=== PATIENT | female | born 1930 | race Caucasian/White ===

== ENCOUNTER 2016-06-09 10:08 | Inpatient (IN) ==
--- NOTE | 2016-06-09 10:16 | Emergency Department Note ---
Disposition Clinical Impression: Elevated troponin I level Chest pain Qualifiers: Chest pain type: unspecified Qualified Code(s): R07.9 - Chest pain, unspecified Disposition: Admitted As Inpatient Condition: Fair Time of Disposition: 12:15 General Adult HPI - General Chief complaint: ED General Medical Stated complaint: back and arm pain Time Seen by Provider: 06/09/16 10:08 Source: EMS Mode of arrival: EMS Limitations: age Nursing Notes Reviewed: Yes Vital Signs Reviewed: Yes - History of Present Illness HPI Narrative: 86-year-old female history of dementia, presents from [facility] with general complaints, per the nursing's home staff, she was complaining of chest pain his morning about an hour or so prior to arrival. However she told EMS that she had toe pain, and back pain. When I ask her, she states that she has pain going down her right upper extremity atraumatic, and mild headache. She denies chest pain, denies abdominal pain and denies toe pain to me. She states her headaches are 2 out of 10 aching nonradiating. Bilateral frontal. Patient does not have a DNR order instructed as per EMS, history obtained from the patient is limited secondary to dementia. Location: head, chest (now resolved), upper extremity Radiation: back, extremity Pain Severity: mild Pain Scale: 2 Improves with: nothing Worsens with: nothing Associated symptoms: Reports: headaches. Denies: confusion, chest pain, diaphoresis, fever/chills, nausea/vomiting - Related Data Home Medications Medication Instructions Recorded Confirmed Amlodipine [Norvasc] 5 mg PO DAILY 06/09/16 06/09/16 Aspirin [Lo-Dose Aspirin EC] 81 mg PO DAILY 06/09/16 06/09/16 Buspirone HCl [Buspar] 10 mg PO TID 06/09/16 06/09/16 Calcium Carbonate/Vitamin D3 1 tab PO DAILY 06/09/16 06/09/16 [Oyster Shell Calcium-Vit D Tab] Divalproex (12 HR) [Depakote (12 250 mg PO BID 06/09/16 06/09/16 HR)] Donepezil [Aricept] 10 mg PO HS 06/09/16 06/09/16 Ergocalciferol (VITAMIN D2) 50,000 unit PO MO 06/09/16 06/09/16 [Vitamin D2] Furosemide [Lasix] 20 mg PO BID 06/09/16 06/09/16 HydrOXYzine Pamoate [Hydroxyzine 25 mg PO BID 06/09/16 06/09/16 Pamoate] Iron Bis-Gly/FA/C/B12/Ca/Succ 1 tab PO DAILY 06/09/16 06/09/16 [Iron 21/7 Tablet] Losartan Potassium [Cozaar] 100 mg PO DAILY 06/09/16 06/09/16 Memantine HCl [Namenda Xr] 14 mg PO DAILY 06/09/16 06/09/16 Metoprolol Tartrate [Lopressor] 50 mg PO BID 06/09/16 06/09/16 Naproxen Sodium [All Day Pain 220 mg PO DAILY 06/09/16 06/09/16 Relief] Nitroglycerin [Nitrostat] 0.4 mg SL AD PRN 06/09/16 06/09/16 Oxycodone HCl/Acetaminophen 1 tab PO Q4H PRN 06/09/16 06/09/16 [Percocet 5-325 mg Tablet] Pantoprazole Sodium [Protonix] 40 mg PO DAILY 06/09/16 06/09/16 Potassium Chloride [Klor-Con 10 meq PO DAILY 06/09/16 06/09/16 Sprinkle] Sennosides/Docusate Sodium 1 tab PO BID 06/09/16 06/09/16 [Senna-Docusate Sodium Tablet] Sertraline [Zoloft] 100 mg PO DAILY 06/09/16 06/09/16 Allergies Allergy/AdvReac Type Severity Reaction Status Date / Time quinine Allergy See Verified 06/09/16 10:18 Comments alprazolam [From Xanax] AdvReac Agitated Verified 06/09/16 10:18 lorazepam [From Ativan] AdvReac Agitated Verified 06/09/16 10:18 All systems ED: reviewed and negative except as stated. (Limited secondray to demenita) ENT ED: Denies: ear pain Cardiovascular: Denies: chest pain Respiratory: Denies: cough, dyspnea Gastrointestinal: Denies: abdominal pain, nausea, vomiting, diarrhea Musculoskeletal: Denies: back pain, neck pain Neurological: Reports: as per HPI, headache. Denies: weakness Past Medical History - Past Medical History Attestation: Yes The following information was validated with the patient. Source: patient Physical Exam Constitutional: alert and oriented to self only, pleasantly demented, in no acute distress vital signs reviewed and wnl HEENT: NCAT, sclera anicteric, PERRLA bilaterally,, mucous membranes appear dry Neck: normal inspection, neck is supple, trachea midline Resp: normal chest inspection, CTA bilaterally, no resp distress CV: bradycardic, no m/g/r GI: normal inspection, Soft, NTND, BS present Back: normal inspection, no tenderness to palpation Neuro: A&O1, no gross motor or sensory deficits bilaterally MSK: normal inspection, bilateral UE and LE with normal ROM Skin: poor skin turgor - General Limitations: age General appearance: in no apparent distress Course Course Narrative: 86-year-old female with chest pain, currently denies any pain, did state that she had intermittent right arm pain, that sound resolved. Her daughters at bedside and does give some of her history, she is a full code at this time, has a history of CAD and stents. Nursing facility stated that she had chest pain radiating to her back and into her arm earlier. EKG review does show a left bundle-branch markus 45bpm last with previous EKG done since 2009. - Reevaluation(s) Reevaluation #1: Troponin was 0.04, patient's heart rate still 45, patient is still asymptomatic at this time, given elevated troponin, concerns for ACS limits the hospitalist service patient's currently in stable condition at the time of ED disposition Dr. Lloyd accepting Time: 12:14 Vital Signs Temperature 97.6 F 06/09/16 10:12 Pulse Rate 45 06/09/16 10:12 Respiratory Rate 17 06/09/16 10:12 Blood Pressure 173/74 06/09/16 10:12 O2 Sat by Pulse Oximetry 96 06/09/16 10:12 Temperature 97.6 F 06/09/16 10:12 Pulse Rate 45 06/09/16 10:31 Respiratory Rate 16 06/09/16 10:31 Blood Pressure 175/83 06/09/16 10:31 O2 Sat by Pulse Oximetry 98 06/09/16 10:31 Oxygen Delivery Oxygen Delivery Nasal Cannula Medical Decision Making - MDM Narrative Medical decision making narrative: 86-year-old female with concerning signs and symptoms of ACS, however initial troponin was only mildly elevated 0.04 and advanced age, deferred anticoagulation to the hospitalist this time, EKG shows left bundle branch block appears new however previous EKG was 7 years ago and this does not meet criteria for ACS, we will admit for troponin trending, evaluation by cardiology aspirin given, patient stable family disposition - Medical Records Medical records reviewed: Yes I reviewed the patient's medical records. - Lab Data Lab results reviewed: Yes I reviewed the patient's lab results. Result diagrams: 06/09/16 10:43 06/09/16 10:43 Lab Results 06/09/16 06/09/16 06/09/16 Range/Units 10:43 10:43 10:43 WBC 7.3 (4.3-11.1) K/mcL RBC 4.58 (3.82-4.97) M/mcL Hgb 13.6 (11.5-15.4) g/dL Hct 41.6 (35.3-44.9) % MCV 90.8 (83.0-100.0) fL MCH 29.7 (28.0-33.3) pg MCHC 32.7 (31.6-35.5) g/dL RDW 13.2 (11.5-14.5) % Plt Count 135 L (140-400) K/mcL MPV 10.0 (9.4-12.4) fL Immature Gran % 0.4 (0-4) % Seg Neutrophils % 59.8 % Lymphocytes % 23.7 % Monocytes % 10.3 % Eosinophils % 5.1 % Basophils % 0.7 % Neutrophils # 4.3 (1.6-8.9) K/mcL Lymphocytes # 1.7 (0.6-4.6) K/mcL Monocytes # 0.8 (0.0-1.3) K/mcL Eosinophils # 0.4 (0.0-0.6) K/mcL Basophils # 0.1 (0.0-0.2) K/mcL PT 13.7 H (9.4-12.1) Seconds INR 1.3 APTT 32.0 (26.0-36.0) Seconds Sodium 141 (136-145) mEq/L Potassium 4.1 (3.5-4.5) mEq/L Chloride 105 (98-109) mEq/L Carbon Dioxide 24 (19-29) mEq/L BUN 20 (7-20) mg/dL Creatinine 0.77 (0.57-1.11) mg/dL Est GFR ( Amer) > 60 (> 60) Est GFR (Non-Af Amer) > 60 (> 60) BUN/Creatinine Ratio 26 (6-26) Glucose 84 (70-99) mg/dL Calculated Osmolality 294 (280-300) Calcium 9.4 (8.6-10.8) mg/dL Troponin I (0-0.03) ng/mL Urine Color (Yellow) Urine Clarity (Clear) Urine pH (5.0-8.0) pH Units Ur Specific [place] (1.010-1.025) Urine Protein (Neg-Trace) mg/dL Urine Glucose (UA) (Normal) mg/dL Urine Ketones (Negative) mg/dL Urine Blood (Negative) Urine Nitrite (Negative) Urine Bilirubin (Negative) Urine Urobilinogen (Normal) mg/dL Ur Leukocyte Esterase (Negative) Ur Culture Indicated? (NO) 06/09/16 06/09/16 Range/Units 10:43 11:35 WBC (4.3-11.1) K/mcL RBC (3.82-4.97) M/mcL Hgb (11.5-15.4) g/dL Hct (35.3-44.9) % MCV (83.0-100.0) fL MCH (28.0-33.3) pg MCHC (31.6-35.5) g/dL RDW (11.5-14.5) % Plt Count (140-400) K/mcL MPV (9.4-12.4) fL Immature Gran % (0-4) % Seg Neutrophils % % Lymphocytes % % Monocytes % % Eosinophils % % Basophils % % Neutrophils # (1.6-8.9) K/mcL Lymphocytes # (0.6-4.6) K/mcL Monocytes # (0.0-1.3) K/mcL Eosinophils # (0.0-0.6) K/mcL Basophils # (0.0-0.2) K/mcL PT (9.4-12.1) Seconds INR APTT (26.0-36.0) Seconds Sodium (136-145) mEq/L Potassium (3.5-4.5) mEq/L Chloride (98-109) mEq/L Carbon Dioxide (19-29) mEq/L BUN (7-20) mg/dL Creatinine (0.57-1.11) mg/dL Est GFR ( Amer) (> 60) Est GFR (Non-Af Amer) (> 60) BUN/Creatinine Ratio (6-26) Glucose (70-99) mg/dL Calculated Osmolality (280-300) Calcium (8.6-10.8) mg/dL Troponin I 0.04 H* (0-0.03) ng/mL Urine Color Yellow (Yellow) Urine Clarity Clear (Clear) Urine pH 7.0 (5.0-8.0) pH Units Ur Specific [place] 1.013 (1.010-1.025) Urine Protein Negative (Neg-Trace) mg/dL Urine Glucose (UA) Normal (Normal) mg/dL Urine Ketones Negative (Negative) mg/dL Urine Blood Negative (Negative) Urine Nitrite Negative (Negative) Urine Bilirubin Negative (Negative) Urine Urobilinogen Normal (Normal) mg/dL Ur Leukocyte Esterase Negative (Negative) Ur Culture Indicated? NO (NO) - Radiology Data Radiology results reviewed: Yes I reviewed the patient's radiology results. Chest X-Ray 06/09/16 10:12 IMPRESSION: 1. No acute abnormality. D/ / Luigi Tracy MD / Luigi Tracy MD Interpreting Provider: Luigi Tracy MD - EKG Data EKG #1 EKG attestation: Yes I reviewed and interpreted this EKG. EKG shows normal: sinus rhythm Rate: bradycardia (45 bpm 157 DC interval QRS 123 QTc 485) [place]/QRS: LBBB Interpretation: nonspecific ST-T wave changes (Change from previous EKG in 2009) - Core Measures AMI Core Measures Followed: Yes
[2016-06-09 10:49] LABS: Basophils # 0.1 K/mcL (0.0-0.2); Basophils % 0.7 %; Eosinophils # 0.4 K/mcL (0.0-0.6); Eosinophils % 5.1 %; Hematocrit 41.6 % (35.3-44.9); Hemoglobin 13.6 g/dL (11.5-15.4); Immature Granulocytes % 0.4 % (0-4); Lymphocytes # 1.7 K/mcL (0.6-4.6); Lymphocytes % 23.7 %; Mean Corpuscular HGB Conc 32.7 g/dL (31.6-35.5); Mean Corpuscular Hemoglobin 29.7 pg (28.0-33.3); Mean Corpuscular Volume 90.8 fL (83.0-100.0); Monocytes # 0.8 K/mcL (0.0-1.3); Monocytes % 10.3 %; Neutrophils # 4.3 K/mcL (1.6-8.9); Platelet Count 135 K/mcL (140-400); Red Blood Count 4.58 M/mcL (3.82-4.97); Red Cell Distribution Width 13.2 % (11.5-14.5); Segmented Neutrophils % 59.8 %
[2016-06-09 10:54] LABS: INR 1.3; Prothrombin Time 13.7 Seconds (9.4-12.1)
[2016-06-09 11:02] LABS: BUN/Creatinine Ratio 26 (6-26); Blood Urea Nitrogen 20 mg/dL (7-20); Calcium 9.4 mg/dL (8.6-10.8); Carbon Dioxide 24 mEq/L (19-29); Chloride 105 mEq/L (98-109); Glucose 84 mg/dL (70-99); Osmolality,Calculated 294 (280-300); Potassium 4.1 mEq/L (3.5-4.5); Sodium 141 mEq/L (136-145); eGFR For African Americans > 60 (> 60); eGFR For Non-African Americans > 60 (> 60)
[2016-06-09] MEDS ORDERED: Aspirin 81 MG TAB.CHEW PO ONE (11:35)
[2016-06-09 11:51] LABS: Bilirubin,Urine Negative (Negative); Blood,Urine Negative (Negative); Clarity,Urine Clear (Clear); Color,Urine Yellow (Yellow); Glucose,Urine (UA) Normal (Normal); Ketones,Urine Negative (Negative); Leukocyte Esterase,Urine Negative (Negative); Nitrite,Urine Negative (Negative); Protein,Urine Negative (Neg-Trace); Specific Gravity,Urine 1.013 (1.010-1.025); Urobilinogen,Urine Normal (Normal)
[2016-06-09] MEDS ORDERED: Nitroglycerin 0.4 MG TAB.SUBL SL PRN (12:49)
--- NOTE | 2016-06-09 13:13 | Emergency Department Note ---
START Narrative - START START: I examined this patient and my medical decision-making was reviewed with the MANAGER RAIL/PA/Advanced Practice Nurse/Resident Physician. I agree with the documented findings, disposition and treatment plan as described except to the extent set forth below. History source: Patient is unable to provide information for this note. Info was gathered from the patient, hospital staff, the patient's chart. History limitations: Patient condition Medications: As per nurses note 86-year-old female brought in by EMS from [facility] for concerns of elevated blood pressure, chest pain. Initially there was confusion regarding the patient 's presenting complaints however the daughter states she was called about chest pain occurring early this morning. Daughter states the CODE STATUS is a full code. Daughter reports the patient has a long history of cardiac disease with multiple stents. Patient is unable to give a history regarding her symptoms. Initial ECG shows sinus bradycardia with a left bundle branch block and rate of 45. patient denies pain in the emergency department. On physical exam the patient has mild tenderness to suprapubic area. Lungs are clear to auscultation bilaterally. Patient has pulses palpable in the bilateral upper and lower extremities. Initial troponin was elevated at 0.04. Patient given aspirin in the emergency department. We do not have any previous troponins to compare this to. Patient and daughter feel comfortable with plan for admission to the hospital for continuation of care.
--- NOTE | 2016-06-09 13:14 | Internal Med History&Physical ---
Date of Encounter: 06/09/16 Time of Encounter: 13:11 Assessment and Plan (1) NSTEMI (non-ST elevated myocardial infarction) Current visit: Yes Status: Acute I will give the patient one those of Lovenox 1 mg per KG. Discussed with cardiology because of left bundle branch block that was not present (EKG however this has been 7 years ago. Continue aspirin. I would hold beta rebecca because she was ready currently down to the 40s in the emergency room. Etiology for chest pain is either occlusive coronary artery disease versus hypertensive urgency. Serial troponin. Patient this full code. Continuous telemetry monitoring (2) Hypertensive urgency Current visit: Yes Status: Acute Continue home blood pressure medications. Start the patient on long-acting nitrates. Increase Norvasc to 10 mg. PRN hydralazine for systolic blood pressure more than 180 or DISATOLIC more than 110 (3) Abdominal distension Current visit: Yes Status: Acute Likely related to constipation. However she has minimal tenderness in the lower abdomen. Non-contrasted CT scan will be performed. Urine analysis shows no sign of infection Internal Medicine - H&P: HPI Chief complaint: chest pain History of present illness: Ms. Whitehead is a 86 year old female with history of advanced Alzheimer's dementia, coronary artery disease status post PCI in 2002 2005 and 2007 taken off Plavix 2 years ago presented emergency room today with the main complaining of chest pain. Patient is a poor historian unable to provide any history. History is made from the daughter as well as senior care staff. According to senior care staff patient started complaining of chest pain retrosternal area since this morning. She was also noted to be more bradycardiac and hypertensive. According to daughter her blood pressure in the senior care was 190/90.. She has not been complaining of chest pain before. She was not apparently more short of breath at rest at least. She had a recent bronchitis that was treated 3 weeks ago and her symptoms improved. No report fevers or chills. However patient has been complaining of lower abdominal discomfort. No reported history of diarrhea. Past Med Surg Social Fam HX - Past Medical History Medical history: CHF, dementia, fibromyalgia, GERD, hypertension, myocardial infarction, osteoporosis, RA, other Psychiatric history: anxiety, depression - Social History Smoking Status: Never smoker Alcohol use: none Drug use: none Internal Medicine - H&P: Meds Amlodipine [Norvasc] 5 mg PO DAILY 04/01/17 [History] Aspirin [Lo-Dose Aspirin EC] 81 mg PO DAILY 06/09/16 [History] Buspirone HCl [Buspar] 10 mg PO TID 06/09/16 [History] Calcium Carbonate/Vitamin D3 [Oyster Shell Calcium-Vit D Tab] 1 tab PO DAILY 03/27 [History] Divalproex (12 HR) [Depakote (12 HR)] 250 mg PO BID 06/09/16 [History] Donepezil [Aricept] 10 mg PO HS 06/09/16 [History] Ergocalciferol (VITAMIN D2) [Vitamin D2] 50,000 unit PO MO 06/09/16 [History] Furosemide [Lasix] 20 mg PO BID 06/09/16 [History] HydrOXYzine Pamoate [Hydroxyzine Pamoate] 25 mg PO BID 06/09/16 [History] Iron Bis-Gly/FA/C/B12/Ca/Succ [Iron 21/7 Tablet] 1 tab PO DAILY 06/09/16 [ History] Losartan Potassium [Cozaar] 100 mg PO DAILY 06/09/16 [History] Memantine HCl [Namenda Xr] 14 mg PO DAILY 06/09/16 [History] Metoprolol Tartrate [Lopressor] 50 mg PO BID 06/09/16 [History] Naproxen Sodium [All Day Pain Relief] 220 mg PO DAILY 06/09/16 [History] Nitroglycerin [Nitrostat] 0.4 mg SL AD PRN 06/09/16 [History] Oxycodone HCl/Acetaminophen [Percocet 5-325 mg Tablet] 1 tab PO Q4H PRN [History] Pantoprazole Sodium [Protonix] 40 mg PO DAILY 06/09/16 [History] Potassium Chloride [Klor-Con Sprinkle] 10 meq PO DAILY 06/09/16 [History] Sennosides/Docusate Sodium [Senna-Docusate Sodium Tablet] 1 tab PO BID 06/09/16 [History] Sertraline [Zoloft] 100 mg PO DAILY 06/09/16 [History] Allergies quinine Allergy (Verified 06/09/16 10:18) See Comments unknown reaction alprazolam [From Xanax] Adverse Reaction (Verified 06/09/16 10:18) Agitated lorazepam [From Ativan] Adverse Reaction (Verified 06/09/16 10:18) Agitated All Systems PM: A 10-system review of systems was performed and is negative for pertinent findings except as documented above in the HPI. Review of systems: 10 point review of systems is negative except for HPI - Constitutional Vitals: Temp Pulse Resp BP Pulse Ox 97.6 F 45 16 158/68 98 06/09/16 10:12 06/09/16 10:31 06/09/16 13:04 06/09/16 13:04 06/09/16 10:31 Exam: Gen.: patient is alert no distress. Cardiac: normal S1 S2 no additional sounds or murmur chest clear to auscultation abdomen: soft some tenderness across lower abdomen lower extremity swelling Internal Med - H&P Results - Labs CBC & Chem 7: 06/09/16 10:43 06/09/16 10:43
[2016-06-09] MEDS: Isosorbide MONOnitrate (24 HR) 30 MG TAB.ER.24H PO SCH (13:57)
[2016-06-09] MEDS: *HR* Enoxaparin 40 MG/0.4 ML SYRINGE SQ ONE ×2 (13:58→17:55)
[2016-06-09] MEDS: Furosemide 20 MG TABLET PO SCH (17:42)
[2016-06-09] MEDS: Divalproex (12 HR) 250 MG TABLET PO SCH (19:58)
[2016-06-10 04:16] LABS: Basophils # 0.1 K/mcL (0.0-0.2); Basophils % 0.8 %; Eosinophils # 0.5 K/mcL (0.0-0.6); Eosinophils % 7.7 %; Hematocrit 37.4 % (35.3-44.9); Hemoglobin 12.7 g/dL (11.5-15.4); Immature Granulocytes % 0.5 % (0-4); Lymphocytes # 1.8 K/mcL (0.6-4.6); Lymphocytes % 30.2 %; Mean Corpuscular Hemoglobin 30.5 pg (28.0-33.3); Mean Corpuscular Volume 89.7 fL (83.0-100.0); Mean Platelet Volume 10.2 fL (9.4-12.4); Monocytes # 0.7 K/mcL (0.0-1.3); Monocytes % 11.5 %; Platelet Count 133 K/mcL (140-400); Red Blood Count 4.17 M/mcL (3.82-4.97); Red Cell Distribution Width 13.3 % (11.5-14.5); Segmented Neutrophils % 49.3 %
[2016-06-10 04:28] LABS: BUN/Creatinine Ratio 25 (6-26); Blood Urea Nitrogen 17 mg/dL (7-20); Carbon Dioxide 26 mEq/L (19-29); Chloride 104 mEq/L (98-109); Glucose 83 mg/dL (70-99); Magnesium 1.9 mg/dL (1.6-2.6); Osmolality,Calculated 289 (280-300); Potassium 3.7 mEq/L (3.5-4.5); Sodium 139 mEq/L (136-145); eGFR For African Americans > 60 (> 60); eGFR For Non-African Americans > 60 (> 60)
[2016-06-10] MEDS: Aspirin Enteric Coated 81 MG Tablet PO SCH (08:36)
[2016-06-10] MEDS: Divalproex (12 HR) 250 MG TABLET PO SCH ×3 (08:37→21:27)
[2016-06-10] MEDS: Furosemide 20 MG TABLET PO SCH ×2 (08:37→16:27)
[2016-06-10] MEDS: Isosorbide MONOnitrate (24 HR) 30 MG TAB.ER.24H PO SCH (08:37)
[2016-06-10] MEDS: amLODIPine 5 MG TABLET PO SCH (08:37)
[2016-06-10] MEDS ORDERED: amLODIPine 5 MG TABLET PO SCH (09:00)
--- NOTE | 2016-06-10 09:06 | Internal Med Progress Note ---
<Janes Shaffer - Last Filed: 06/10/16 15:06> Date of Encounter: 06/10/16 Time of Encounter: 08:40 - Assessment and plan (1) Elevated troponin I level Current Visit: Yes Status: Acute Assessment and plan: - Chest pain on initial presentation with troponin 0.04, which later stable at 0.05 x2. - EKG with sinus bradycardia with left bundle branch block that is new from prior EKG on same day. - Echo today showed LVEF 55% with evidence of moderate LV diastolic dysfunction and severe bi-atrial enlargement. - Currently no chest pain. - Continue medical management as recommended by cardiology. No beta rebecca at this time given her current bradycardia. - Waiting for medical records from patient's cardiology at [facility]. - Appreciate cardiology input. (2) Bradycardia Current Visit: Yes Status: Acute Assessment and plan: - Patient's HR mostly around 50. - Cardiology on board and is waiting for medical records from her primary cardiology office at [facility]. - Hold beta rebecca. - Continue telemetry monitoring. (3) Diverticulosis Current Visit: Yes Status: Chronic Assessment and plan: - CT A/P found extensive colonic diverticulosis. - It also showed short segment focal narrowing involving the distal aspect of the transverse colon. Patient is recommended to have follow up PCP for referral of possible colonoscopy. - Indeterminate low-density hepatic lesions also noted, mostly likely benign cyst or hemangiomata. - Continue to monitor. Qualifiers: Diverticulosis site: diverticulosis of large intestine Diverticulosis bleeding: diverticulosis without bleeding Qualified Code(s): K57.30 - Diverticulosis of large intestine without perforation or abscess without bleeding (4) Essential hypertension Current Visit: Yes Status: Acute Assessment and plan: - Reported highly elevated BP at 190s/90s at long-term. - Improves with BP 166/74 this morning. - Continue amlodipine & losartan. - Continue to monitor. (5) Alzheimer disease Current Visit: Yes Status: Chronic Assessment and plan: - [place] to name only. Baseline mental status per family at bedside. Qualifiers: Alzheimer's disease onset: unspecified onset Dementia behavioral disturbance: without behavioral disturbance Qualified Code(s): G30.9 - Alzheimer's disease, unspecified; F02.80 - Dementia in other diseases classified elsewhere without behavioral disturbance (6) DVT prophylaxis Current Visit: Yes Status: Acute Assessment and plan: - SQ heparin. - Subjective Interval history: No significant event noted overnight. Patient was seen and examined this morning. Patient has some LLQ abdominal pain but no chest pain or shortness of breath. Patient also denies nausea, vomiting, diarrhea, hematochezia or melena. As far as patient's family member at bedside knows, patient has no colonoscopy in the past. - Constitutional Vitals: Temp Pulse Resp BP Pulse Ox 97.9 F 52 20 166/74 95 06/09/16 21:07 06/10/16 05:33 06/10/16 05:33 06/10/16 05:33 06/10/16 05:33 General appearance: Present: A&O X 1 (Name only), no acute distress. Absent: answers questions appropriately - Head Head exam: Present: atraumatic, normocephalic - Eye Eye exam: Present: PERRL, conjuntiva pink, sclera anicteric - Neck Neck exam general surgery: Present: supple, trachea midline. Absent: lymphadenopathy - Respiratory Respiratory exam: Present: CTAB. Absent: accessory muscle use, rales, rhonchi, wheezes - Cardiovascular Cardiovascular exam: Present: RRR, +S1, +S2. Absent: diastolic murmur, gallop, rubs, systolic murmur - GI/Abdominal GI/Abdominal exam: Present: normal bowel sounds, soft, no peritoneal signs. Absent: distended, tenderness - Extremities Exam Extremities exam: Present: warm, radial pulses palpable and symetrical. Absent : calf tenderness, cyanotic, pedal edema - Neurological Exam Neurological exam: Present: CN II-XII intact, no focal deficits. Absent: pronater drift, facial droop, speech deficit - Skin Skin exam: Present: dry, intact. Absent: rash Internal Medicine: Result - Labs CBC & Chem 7: 06/10/16 03:47 06/10/16 03:47 Labs: Short CBC 06/10/16 Range/Units 03:47 WBC 6.1 (4.3-11.1) K/mcL Hgb 12.7 (11.5-15.4) g/dL Hct 37.4 (35.3-44.9) % Plt Count 133 L (140-400) K/mcL Neutrophils # 3.0 (1.6-8.9) K/mcL BMP 06/10/16 03:47 Sodium 139 Potassium 3.7 Chloride 104 Carbon Dioxide 26 BUN 17 Creatinine 0.69 Glucose 83 Calcium 9.0 Cardiac Enzymes 06/09/16 06/09/16 Range/Units 17:01 23:39 Troponin I 0.05 H* 0.05 H* (0-0.03) ng/mL - ABG Interpretation ABG results: PT/INR, D-dimer PT 13.7 Seconds (9.4-12.1) H 06/09/16 10:43 Consult Discharge Plan - Plan Referrals: Cori Donato DO [Primary Care Provider] - <Librado Ku - Last Filed: 06/10/16 16:35> Date of Encounter: 06/10/16 - Constitutional Vitals: Temp Pulse Resp BP Pulse Ox 97.9 F 93 17 138/55 94 06/09/16 21:07 06/10/16 15:59 06/10/16 15:59 06/10/16 15:59 06/10/16 15:59 Internal Medicine: Result - Labs CBC & Chem 7: 06/10/16 03:47 06/10/16 03:47 Labs: Short CBC 06/10/16 Range/Units 03:47 WBC 6.1 (4.3-11.1) K/mcL Hgb 12.7 (11.5-15.4) g/dL Hct 37.4 (35.3-44.9) % Plt Count 133 L (140-400) K/mcL Neutrophils # 3.0 (1.6-8.9) K/mcL BMP 06/10/16 03:47 Sodium 139 Potassium 3.7 Chloride 104 Carbon Dioxide 26 BUN 17 Creatinine 0.69 Glucose 83 Calcium 9.0 Cardiac Enzymes 06/09/16 06/09/16 Range/Units 17:01 23:39 Troponin I 0.05 H* 0.05 H* (0-0.03) ng/mL - ABG Interpretation ABG results: PT/INR, D-dimer PT 13.7 Seconds (9.4-12.1) H 06/09/16 10:43 - Impressions Impressions Abdomen/Pelvis CT 06/10/16 13:13 IMPRESSION: 1. Cardiomegaly with atherosclerosis and coronary artery disease 2. Extensive colonic diverticulosis. 3. Short segment focal narrowing involving the distal aspect of the transverse colon. This could represent spasm, although neoplasm is not excluded. Correlation with colonoscopy is recommended. 4. Indeterminate low-density hepatic lesions. Statistically, these most likely represent benign cysts or hemangiomata. Consider MRI correlation to further characterize these lesions. 5. Severe osteoarthritis of the right hip with prominent right hip joint effusion. D/ / 06/10/2016 11:04:38 José Miguel Esquivel MD / [employer] Interpreting Provider: José Miguel Esquivel MD - Attending Attestation I examined this patient and my medical decision-making was reviewed with the TRUCK TERMINAL MANAGER/PA/Advanced Practice Nurse/Resident Physician. I agree with the documented findings, disposition and treatment plan as described except to the extent set forth below.
--- NOTE | 2016-06-10 11:53 | Cardiology Consult Note ---
<Marek Locke - Last Filed: 06/10/16 12:59> Date of Encounter: 06/10/16 Time of Encounter: 11:00 Assessment and Plan (1) Elevated troponin I level Current Visit: Yes Status: Acute Per cardiology: -Troponin 0.04, 0.05, 0.05. -BP hypertensive at retirement reported as 190systolic and 90 diastolic. -BP 170s systolic upon admission to [place]. -ECG with sinus bradycardia, left bundle branch block. Apparently new from comparison ECG 2009, however patient does not see cardiology here. Follows at [facility], will attempt to obtain records to confirm if this is new. -Denies current chest pain. Reports back pain. -Recent respiratory illness per family. -Troponins flat and adynamic in the setting of hypertensive urgency. -Echo pending. -History of MS with stenting reportedly 2007 at [facility]. -On asa, calcium channel rebecca, imdur, and ARB. Unable to add beta rebecca due to bradycardia. -Further recommendations pending echo. -Will attempt to obtain records from primary sheet [place] taper office. (FREDDY) (2) Essential hypertension Current Visit: Yes Status: Acute Per cardioloy: -Known hypertension. -BPs 170s systolic upon admission. -Current BPs 130-160 systolic. -On calcium channel rebecca and ARB. No beta rebecca due to bradycardia. -Norvasc increased to 10mg po daily per primary service this morning. -Will continue to monitor BPs. (FREDDY) (3) Alzheimer disease Current Visit: Yes Status: Chronic Per cardiology: -Known history of alzheimers disease. -On aricept. -Oriented to person only. Pleasant. -Management per primary service. (FREDDY) Qualifiers: Alzheimer's disease onset: unspecified onset Dementia behavioral disturbance: without behavioral disturbance Qualified Code(s): G30.9 - Alzheimer's disease, unspecified; F02.80 - Dementia in other diseases classified elsewhere without behavioral disturbance (4) Bradycardia Current Visit: Yes Status: Acute Per cardiology: -Average HR 50. -ECG with HR 45. -Unknown baseline. Patient does not follow at [place]. -Again will attempt to obtain records from primary [place] taper office. -Avoid beta blockers. (FREDDY) Discussion w patient/family: The assessment and plan as outlined above was discussed with the patient and/or family members who expressed understanding and agreement. All questions were answered. Thank you for involving us in the care of your patient. Please call with any questions. Patient seen and examined with JOURDAN Bolivar Discussed and reviewed with . History of Present Illness Consult date: 06/09/16 Requesting physician: Bebeto Lloyd Consult reason: NSTEMI Chief complaint: back pain History of present illness: Ms. Whitehead is a 86 year old female with a relevant past medical history of MS , Reported 2 stents per family last in 2007, CHF, dementia, GERD, HTN, RA, anxiety, and depression. Patient lives at a retirement and according to family she started complaining of "chest pain." Patient was sent to ER. Per ER records, patient was no longer complaining of chest pain. ER documentation reports she was complaining of back and foot pain. Troponin was obtained and noted to be elevated. Patient was admitted and cardiology was consulted. Patient denies current chest pain. Patient admits to back pain. Per family, patient had upper respiratory infection a few weeks ago. Patient denies current cough or congestion. (FREDDY). Past Med Surg Social Fam HX - Past Medical History Attestation: Yes The following information was validated with the patient. Source: old records reviewed, obtained from family Medical history: CHF, dementia, fibromyalgia, GERD, hypertension, myocardial infarction, osteoporosis, RA, other Psychiatric history: anxiety, depression - Social History Smoking Status: Never smoker Smokeless Tobacco Status: No Alcohol use: none Drug use: none Medications and Allergies Amlodipine [Norvasc] 5 mg PO DAILY 06/09/16 [History] Aspirin [Lo-Dose Aspirin EC] 81 mg PO DAILY 06/09/16 [History] Buspirone HCl [Buspar] 10 mg PO TID 06/09/16 [History] Calcium Carbonate/Vitamin D3 [Oyster Shell Calcium-Vit D Tab] 1 tab PO DAILY 03/27 [History] Divalproex (12 HR) [Depakote (12 HR)] 250 mg PO BID 06/09/16 [History] Donepezil [Aricept] 10 mg PO HS 06/09/16 [History] Ergocalciferol (VITAMIN D2) [Vitamin D2] 50,000 unit PO MO 06/09/16 [History] Furosemide [Lasix] 20 mg PO BID 06/09/16 [History] HydrOXYzine Pamoate [Hydroxyzine Pamoate] 25 mg PO BID 06/09/16 [History] Iron Bis-Gly/FA/C/B12/Ca/Succ [Iron 21/7 Tablet] 1 tab PO DAILY 06/09/16 [ History] Losartan Potassium [Cozaar] 100 mg PO DAILY 06/09/16 [History] Memantine HCl [Namenda Xr] 14 mg PO DAILY 06/09/16 [History] Metoprolol Tartrate [Lopressor] 50 mg PO BID 06/09/16 [History] Naproxen Sodium [All Day Pain Relief] 220 mg PO DAILY 06/09/16 [History] Nitroglycerin [Nitrostat] 0.4 mg SL AD PRN 06/09/16 [History] Oxycodone HCl/Acetaminophen [Percocet 5-325 mg Tablet] 1 tab PO Q4H PRN [History] Pantoprazole Sodium [Protonix] 40 mg PO DAILY 06/09/16 [History] Potassium Chloride [Klor-Con Sprinkle] 10 meq PO DAILY 06/09/16 [History] Sennosides/Docusate Sodium [Senna-Docusate Sodium Tablet] 1 tab PO BID 06/09/16 [History] Sertraline [Zoloft] 100 mg PO DAILY 06/09/16 [History] Allergies quinine Allergy (Verified 06/09/16 10:18) See Comments unknown reaction alprazolam [From Xanax] Adverse Reaction (Verified 06/09/16 10:18) Agitated lorazepam [From Ativan] Adverse Reaction (Verified 06/09/16 10:18) Agitated ROS unobtainable: due to mental status, other (Pateint unclear of symptoms. ) All Systems Review: A 10-system review of systems was performed and is negative for pertinent findings except as documented above in the HPI. - Cardiovascular Cardiovascular: as per HPI - Musculoskeletal Musculoskeletal: back pain Physical Examination Vital Signs Temp Pulse Resp BP Pulse Ox 06/10/16 05:33 52 20 166/74 95 06/09/16 21:07 97.9 F 45 20 130/55 96 06/09/16 16:00 44 15 132/54 96 06/09/16 13:28 52 17 139/99 96 06/09/16 13:04 16 158/68 General: Conversant, No Apparent Distress HEENT: Atraumatic, Normocephaly, Mucus Membranes Moist Neck: No JVD, Normal carotid pulses Cardiac: Reg Rate and Rhythm, Normal S1 and S2, No Murmur Lungs: Normal Breath Sounds, No Wheeze, Rales, Rhonchi Neuro: Alert and responsive, Other (Oriented to person only. ) Abdomen: Soft, Non-Tender Skin: No rashes noted on visualized skin Musculoskeletal: No Chest Wall Tenderness Extremities: No Clubbing, No Cyanosis, No Edema, Normal Pulses Results 06/10/16 03:47 06/10/16 03:47 Lab Results Impressions Abdomen/Pelvis CT 06/10/16 13:13 IMPRESSION: 1. Cardiomegaly with atherosclerosis and coronary artery disease 2. Extensive colonic diverticulosis. 3. Short segment focal narrowing involving the distal aspect of the transverse colon. This could represent spasm, although neoplasm is not excluded. Correlation with colonoscopy is recommended. 4. Indeterminate low-density hepatic lesions. Statistically, these most likely represent benign cysts or hemangiomata. Consider MRI correlation to further characterize these lesions. 5. Severe osteoarthritis of the right hip with prominent right hip joint effusion. D/ / 06/10/2016 11:04:38 José Miguel Esquivel MD / formerly [facility] Interpreting Provider: José Miguel Esquivel MD Active Medications Amlodipine Besylate (Norvasc) 10 mg PO DAILY [facility] PRN Reason: Protocol Stop: 12/10/16 09:01 Last Admin: 06/10/16 08:37 Dose: 10 mg Aspirin (Aspirin Ec) 81 mg PO DAILY [facility] Stop: 12/10/16 09:01 Last Admin: 06/10/16 08:36 Dose: 81 mg Buspirone HCl (Buspar) 10 mg PO TID [facility] Stop: 12/09/16 15:01 Last Admin: 06/10/16 08:37 Dose: 10 mg Divalproex Sodium (Depakote (12 Hr)) 250 mg PO BID [facility] Stop: 12/09/16 21:01 Last Admin: 06/10/16 08:37 Dose: 250 mg Furosemide (Lasix) 20 mg PO BIDDIURETIC [facility]IX Stop: 12/09/16 17:01 Last Admin: 06/10/16 08:37 Dose: 20 mg Hydralazine HCl (Hydralazine) 5 mg IVP Q8H PRN PRN Reason: Hypertension Stop: 12/09/16 13:19 Isosorbide Mononitrate (Imdur) 30 mg PO DAILY [facility] Stop: 12/09/16 13:01 Last Admin: 06/10/16 08:37 Dose: 30 mg Losartan Potassium (Cozaar) 100 mg PO DAILY [facility] Stop: 12/10/16 09:01 Last Admin: 06/10/16 08:36 Dose: 100 mg Nitroglycerin (Nitroglycerin) 0.4 mg SL AD PRN PRN Reason: Chest Pain Stop: 12/09/16 12:50 Omeprazole (Prilosec) 40 mg PO DAILY [facility] Stop: 12/10/16 09:01 Last Admin: 06/10/16 08:37 Dose: 40 mg Sertraline HCl (Zoloft) 100 mg PO DAILY [facility] Stop: 12/10/16 09:01 Last Admin: 06/10/16 08:37 Dose: 100 mg Laboratory Tests 06/09/16 06/09/16 06/09/16 10:43 10:43 17:01 Hgb Hct Potassium Creatinine 0.77 Troponin I 0.04 H* 0.05 H* 06/09/16 06/10/16 06/10/16 23:39 03:47 03:47 Hgb 12.7 Hct 37.4 Potassium 3.7 Creatinine 0.69 Troponin I 0.05 H* - Imaging and Cardiology Chest Xray: report reviewed Echo: pending Other Results: CT abdomen and pelvis reviewed - EKG Interpretation EKG results cardiology: personally reviewed (ECG with sinus bradycardia with PVCs, left bundle branch block.), other (Telemetry reviewed with average HR 50, occasional PVCs noted. PACs noted.) Consult Discharge Plan - Plan Referrals: Cori Donato DO [Primary Care Provider] - <Karen Butterfield - Last Filed: 06/10/16 16:09> Date of Encounter: 06/10/16 Assessment and Plan Discussion w patient/family: The assessment and plan as outlined above was discussed with the patient and/or family members who expressed understanding and agreement. All questions were answered. Thank you for involving us in the care of your patient. Please call with any questions. History of Present Illness History of present illness: Ms. Whitehead is a 86 year old female All Systems Review: A 10-system review of systems was performed and is negative for pertinent findings except as documented above in the HPI. Physical Examination Vital Signs, Last 4 Hours Pulse Resp BP Pulse Ox 06/10/16 15:59 93 17 138/55 94 Results 06/10/16 03:47 06/10/16 03:47 Lab Results 06/09/16 06/09/16 06/10/16 17:01 23:39 03:47 WBC 6.1 Hgb 12.7 Hct 37.4 Plt Count 133 L Sodium Potassium Chloride Carbon Dioxide BUN Creatinine Glucose Calcium Magnesium Troponin I 0.05 H* 0.05 H* 06/10/16 03:47 WBC Hgb Hct Plt Count Sodium 139 Potassium 3.7 Chloride 104 Carbon Dioxide 26 BUN 17 Creatinine 0.69 Glucose 83 Calcium 9.0 Magnesium 1.9 Troponin I - Attending Attestation I examined this patient and my medical decision-making was reviewed with the SUSTAINABILITY MANAGER/PA/Advanced Practice Nurse/Resident Physician. I agree with the documented findings, disposition and treatment plan. Ms. Whitehead has baseline dementia making it challenging to understand her presenting symptoms. There seems to have been a variety of complaints. We are therefore unable to interpret her troponins within a clinical context. That said, they are very mild, flat and adynamic. Her echo demonstrates preserved LV and RV function without regional variation. Her ECG demonstrates a LBBB which is of unknown duration (prior ECG from 2009 does not demonstrate this). However, we would expect a more dramatic cardiac presentation, and regional LV variations in the setting of a new LBBB. Overall, her troponin elevation does not appear to represent an acute coronary syndrome. This was described to the family member at the bedside. Troponins may however represent demand ischemia from hypertensive heart disease. We recommend blood pressure control. Noted, are bradycardic heart rates. It is unclear whether this is new or old and she has been on a beta rebecca which has been held. We are attempting to obtain records from her [employer] Transporter. Further recommendations to follow.
--- NOTE | 2016-06-10 13:26 | ECHO - Doppler Report ---
Echocardiogram Name: Stephanie Whitehead Date of Study: 06/10/2016 Date: 1930 Ht: 59.0 in Medical Record#: [id number] Age: 86 Wt: 116.0 lb Gender: Female BSA: 1.46 Order #: [id number] Location: [facility] Room #: [id number] Reading Physician: Karen Butterfield DO Architectural Wood Model Maker: Leonor Smith Ordering Physician: Bebeto Lloyd MD Primary Physician: None Indications: NSTEMI Impressions: LVEF 55%. There is evidence of moderate diastolic dysfunction of the left ventricle. Moderate concentric hypertrophy of the left ventricle. Severe bi-atrial enlargement. Normal right ventricular size and function. Mild aortic regurgitation. Moderate mitral regurgitation. Mild-moderate tricuspid regurgitation. Mild-moderate pulmonic regurgitation. Mild pulmonary hypertension. Left Ventricular Wall Motion: Rest Echo Findings All wall segments showed normal motion. Findings: Study Quality * Technically adequate exam. ECG Findings * Sinus bradycardia. Left Ventricle * LVEF 55%. * Moderate concentric left ventricular hypertrophy. * Moderate left ventricular diastolic dysfunction. Aorta * Normally sized aortic root. Mitral Valve * No mitral stenosis. * Mild to moderate focal calcification of the mitral valve leaflets. * Moderate mitral regurgitation. Tricuspid Valve * Mild-moderate tricuspid regurgitation. * Normal tricuspid valve structure. * Estimated RA pressure is 3 mmHg. * Estimated RVSP is 43 mmHg. * Mild pulmonary hypertension. Pulmonic Valve * Pulmonic valve is not well visualized. * No pulmonic stenosis. * Mild-moderate pulmonic regurgitation. Pulmonary Artery * Pulmonary artery not well visualized. Aortic Valve * Trileaflet aortic valve. * Normal aortic valve structure. * Mild aortic regurgitation. * No aortic stenosis. Right Ventricle * Normal right ventricular structure and function. Left Atrium * Severely dilated left atrium. Right Atrium * Severely dilated right atrium. Interatrial Septum * No evidence of PFO by color Doppler. IVC * Normal IVC dimensions and inspiratory collapse. Pericardium * There is no pericardial effusion present. History Hypertension History of CAD/PTCA Myocardial Infarction Congestive Heart Failure Measurements: BP: 166/ 74 2D Normal Values IVSd: 1.60 cm 0.6 - 1.0 cm LVIDd: 3.80 cm 3.7 - 5.6 cm LVPWd: 1.50 cm 0.6 - 1.1 cm LVIDs: 2.60 cm 1.5 - 3.6 cm AO: 2.30 cm < 4.0 cm LA: 4.20 cm 2.0 - 4.0cm %FS: 31.60 cm >25 % LVOT Diam: 1.60 cm LA volume: 82 Mitral Valve Peak E:.92 m/sec Peak A:.51 m/sec E/A Ratio:1.8 Peak E' Lat Daniel:5.17 cm/s Peak E' Med Daniel:3.41 cm/s E/E' Lat Ratio:17.8 E/E' Med Ratio:27 LVOT Peak Daniel:1.09 m/sec Mean Daniel:.70 m/sec Peak Grad:5.00 mmHg Mean Grad:2.00 mmHg Aortic Valve Peak Daniel:2.19 m/sec Mean Daniel:1.56 m/sec Peak Grad:19.00 mmHg Mean Grad:11.00 mmHg Valve Area:1.01 cm2 Tricuspid Valve TV Regurg Peak Grad: 40.00mmHg TV Regurg Peak Daniel: 3.18m/sec Updated by Karen Butterfield on 06/10/2016 1:19:09 PM electronically signed on 06/10/2016 1:21:15 PM with status of Final Wall Motion Gonzales: 1=Normal, 2=Hypokinesis, 3=Akinesis, 4=Dyskinesis, 5=Aneurysmal, 6=Hyperkinetic, X=Not Visualized (Blank)=Missing
--- NOTE | 2016-06-10 13:52 | Electrocardiograph Report ---
[address] [place] [address] Test Date: 2016-06-09 Pat Name: Stephanie Whitehead Department: 104 Room: 2NE31 Gender: F Industrial Relations Representative: : 1930 Requested By: Moncho Mahmood Order Number: [id number] Reading MD: Prakash Joseph MD Measurements Intervals [place] Rate: 45 P: 70 NC: 157 QRS: -59 QRSD: 123 T: 67 QT: 529 QTc: 485 Interpretive Statements SINUS BRADYCARDIA WITH OCCASIONAL SUPRAVENTRICULAR PREMATURE COMPLEXES MARKED LEFT AXIS DEVIATION LEFT BUNDLE BRANCH BLOCK Electronically Signed On 06-10-2016 13:50:47 EDT by Prakash Joseph MD
[2016-06-10] MEDS: *HR* Heparin 5,000 UNIT/ML VIAL SQ SCH (16:27)
[2016-06-11] MEDS: *HR* Heparin 5,000 UNIT/ML VIAL SQ SCH (04:21)
[2016-06-11 04:48] LABS: Basophils # 0.1 K/mcL (0.0-0.2); Basophils % 0.8 %; Eosinophils # 0.4 K/mcL (0.0-0.6); Eosinophils % 5.7 %; Hematocrit 38.6 % (35.3-44.9); Immature Granulocytes % 0.2 % (0-4); Lymphocytes # 1.6 K/mcL (0.6-4.6); Lymphocytes % 24.1 %; Mean Corpuscular HGB Conc 33.7 g/dL (31.6-35.5); Mean Corpuscular Hemoglobin 30.4 pg (28.0-33.3); Mean Corpuscular Volume 90.4 fL (83.0-100.0); Mean Platelet Volume 10.4 fL (9.4-12.4); Monocytes # 0.9 K/mcL (0.0-1.3); Monocytes % 12.8 %; Neutrophils # 3.8 K/mcL (1.6-8.9); Platelet Count 136 K/mcL (140-400); Red Blood Count 4.27 M/mcL (3.82-4.97); Red Cell Distribution Width 13.5 % (11.5-14.5); Segmented Neutrophils % 56.4 %
[2016-06-11 05:11] LABS: BUN/Creatinine Ratio 19 (6-26); Blood Urea Nitrogen 14 mg/dL (7-20); Calcium 9.4 mg/dL (8.6-10.8); Carbon Dioxide 24 mEq/L (19-29); Chloride 106 mEq/L (98-109); Glucose 99 mg/dL (70-99); Osmolality,Calculated 293 (280-300); Potassium 3.4 mEq/L (3.5-4.5); Sodium 141 mEq/L (136-145); eGFR For African Americans > 60 (> 60); eGFR For Non-African Americans > 60 (> 60)
--- NOTE | 2016-06-11 09:13 | Cardiology Progress Note ---
Date of Encounter: 06/11/16 Time of Encounter: 08:30 Assessment and Plan (1) Elevated troponin I level Current Visit: Yes Status: Acute Per cardiology: -Troponin 0.04, 0.05, 0.05. -BP hypertensive at longterm reported as 190systolic and 90 diastolic. -BP 170s systolic upon admission to [place]. -ECG with sinus bradycardia, left bundle branch block. Apparently new from comparison ECG 2009, however patient does not see cardiology here. Follows at [facility], will attempt to obtain records to confirm if this is new. -Denies current chest pain. Reports right hip pain. -Recent respiratory illness per family. -Troponins flat and adynamic in the setting of hypertensive urgency. -Echo 06/10/16 with LVEF 55%, moderate diastolic dysfunction, severe bi-atrial enlargement, mild aortic regurgitation, moderate mitral regurgitation, mild- moderate tricuspid regurgitation, mild-moderate pulmonic regurgitation, mild pulmonary hypertension, all wall segments with normal motion. -History of MA with stenting reportedly 2007 at [facility]. -On asa, calcium channel rebecca, imdur, and ARB. Unable to add beta rebecca due to bradycardia yesterday. -No previous cardiac records available at this time, however suspect mild elevation in troponin due to hypertensive urgency. -Will add lopressor 25mg po BID. Appears home dose of Lopressor 50mg PO BID-- monitor HR closely. -Cardiology will sign off and recommend patient follows up with primary production machine shop supervisor in 2 weeks. (FREDDY) (2) Essential hypertension Current Visit: Yes Status: Acute Per cardioloy: -Known hypertension. -BPs 170s systolic upon admission. -Current BPs 170-180s systolc and 70-90s diastolic. -On calcium channel rebecca and ARB. No beta rebecca due to bradycardia yesterday. Todaye average HR 62. -Norvasc increased to 10mg po daily per primary service yesterday. -Will add lopressor 25mg po BID. (FREDDY) (3) Alzheimer disease Current Visit: Yes Status: Chronic Per cardiology: -Known history of alzheimers disease. -On aricept. -Oriented to person only. Pleasant. -Management per primary service. (FREDDY) Qualifiers: Alzheimer's disease onset: unspecified onset Dementia behavioral disturbance: without behavioral disturbance Qualified Code(s): G30.9 - Alzheimer's disease, unspecified; F02.80 - Dementia in other diseases classified elsewhere without behavioral disturbance (4) Bradycardia Current Visit: Yes Status: Acute Per cardiology: -Average HR 62. -ECG with HR 45. -Unknown baseline. Patient does not follow at [place]. -No previous cardiac records available. -Avoid beta blockers. (FREDDY) Discussion w patient/family: The assessment and plan as outlined above was discussed with the patient and family members who expressed understanding and agreement. All questions were answered. Thank you for involving us in the care of your patient. Please call with any questions. Patient seen and examined with JOURDAN Bolivar Discussed and reviewed with . Subjective Principal diagnosis: elevated troponin Interval history: Ms. Whitehead is a 86 year old female with a relevant past medical history of MA , Reported 2 stents per family last in 2007, CHF, dementia, GERD, HTN, RA, anxiety, and depression. Patient lives at a longterm and according to family she started complaining of "chest pain." Patient was sent to ER. Per ER records, patient was no longer complaining of chest pain. ER documentation reports she was complaining of back and foot pain. Troponin was obtained and noted to be elevated. Patient was admitted and cardiology was consulted. Patient denies current chest pain. Patient admits to right hip pain. Patient admits to back pain. Per family, patient had upper respiratory infection a few weeks ago. Patient denies current cough or congestion. No family at bedside during examination today. (FREDDY). Objective Vital Signs, Last 4 Hours Temp Pulse Resp BP Pulse Ox 06/11/16 07:50 98 F 74 18 181/96 06/11/16 05:17 98.8 F 65 15 172/82 95 General: Conversant, No Apparent Distress HEENT: Atraumatic, Normocephaly, Mucus Membranes Moist Neck: No JVD, Normal carotid pulses Cardiac: Reg Rate and Rhythm, Normal S1 and S2, No Murmur Lungs: Normal Breath Sounds, No Wheeze, Rales, Rhonchi Neuro: Alert and responsive, Other (Oriented to person only. ) Abdomen: Soft, Non-Tender Skin: No rashes noted on visualized skin Musculoskeletal: No Chest Wall Tenderness Extremities: No Clubbing, No Cyanosis, No Edema, Normal Pulses Results 06/11/16 03:47 06/11/16 03:47 Lab Results Impressions Abdomen/Pelvis CT 06/10/16 13:13 IMPRESSION: 1. Cardiomegaly with atherosclerosis and coronary artery disease 2. Extensive colonic diverticulosis. 3. Short segment focal narrowing involving the distal aspect of the transverse colon. This could represent spasm, although neoplasm is not excluded. Correlation with colonoscopy is recommended. 4. Indeterminate low-density hepatic lesions. Statistically, these most likely represent benign cysts or hemangiomata. Consider MRI correlation to further characterize these lesions. 5. Severe osteoarthritis of the right hip with prominent right hip joint effusion. D/ / 06/10/2016 11:04:38 José Miguel Esquivel MD / [facility] Interpreting Provider: José Miguel Esquivel MD Active Medications Amlodipine Besylate (Norvasc) 10 mg PO DAILY [facility] PRN Reason: Protocol Stop: 12/10/16 09:01 Last Admin: 06/10/16 08:37 Dose: 10 mg Aspirin (Aspirin Ec) 81 mg PO DAILY [facility] Stop: 12/10/16 09:01 Last Admin: 06/10/16 08:36 Dose: 81 mg Buspirone HCl (Buspar) 10 mg PO TID [facility] Stop: 12/09/16 15:01 Last Admin: 06/10/16 21:27 Dose: Not Given Divalproex Sodium (Depakote (12 Hr)) 250 mg PO BID [facility] Stop: 12/09/16 21:01 Last Admin: 06/10/16 21:27 Dose: Not Given Furosemide (Lasix) 20 mg PO BIDDIURETIC [facility] Stop: 12/09/16 17:01 Last Admin: 06/10/16 16:27 Dose: 20 mg Heparin Sodium (Porcine) (Heparin) 5,000 unit SQ Q12HCO [facility] Stop: 12/10/16 18:01 Last Admin: 06/11/16 04:21 Dose: 5,000 unit Hydralazine HCl (Hydralazine) 5 mg IVP Q8H PRN PRN Reason: Hypertension Stop: 12/09/16 13:19 Isosorbide Mononitrate (Imdur) 30 mg PO DAILY [facility] Stop: 12/09/16 13:01 Last Admin: 06/10/16 08:37 Dose: 30 mg Losartan Potassium (Cozaar) 100 mg PO DAILY [facility] Stop: 12/10/16 09:01 Last Admin: 06/10/16 08:36 Dose: 100 mg Nitroglycerin (Nitroglycerin) 0.4 mg SL AD PRN PRN Reason: Chest Pain Stop: 12/09/16 12:50 Omeprazole (Prilosec) 40 mg PO DAILY [facility] Stop: 12/10/16 09:01 Last Admin: 06/10/16 08:37 Dose: 40 mg Sertraline HCl (Zoloft) 100 mg PO DAILY [facility] Stop: 12/10/16 09:01 Last Admin: 06/10/16 08:37 Dose: 100 mg Laboratory Tests 06/09/16 06/09/16 06/09/16 10:43 10:43 17:01 Hgb Hct Potassium 4.1 Troponin I 0.04 H* 0.05 H* 06/09/16 06/10/16 06/11/16 23:39 03:47 03:47 Hgb 13.0 Hct 38.6 Potassium 3.7 Troponin I 0.05 H* 06/11/16 03:47 Hgb Hct Potassium 3.4 L Troponin I - Imaging and Cardiology Chest Xray: report reviewed Echo: report reviewed Other Results: CT abdomen and pelvis reviewed. - EKG Interpretation EKG results cardiology: other (Telemetry reviewed with average HR 62, PVCs and PACs noted.) Consult Discharge Plan - Plan Referrals: Cori Donato DO [Primary Care Provider] -
--- NOTE | 2016-06-11 09:56 | Internal Med Progress Note ---
<Juanita Bermeo - Last Filed: 06/11/16 10:12> Date of Encounter: 06/11/16 Time of Encounter: 09:53 - Assessment and plan (1) Elevated troponin I level Status: Acute Assessment and plan: - Chest pain on initial presentation with troponin 0.04, 0.05. 0.05. Patient is currently chest pain free - EKG with sinus bradycardia with left bundle branch block, new from previous EKG in 2009. Patient normally follows at [facility] - Echo 06/10/16: LVEF 55%, moderate LV diastolic dysfunction and severe bi-atrial enlargement. - Cardiology following, appreciate input and expertise. - suspect mild elevation of troponin secondary to hypertensive urgency - continue aspirin, calcium channel rebecca and imdur. Recommended holding beta-rebecca in light of bradycardia - has signed off. Recommend follow up with normal algebraist as previously scheduled in 2 weeks. - no further interventions at this time (2) Bradycardia Status: Acute Assessment and plan: - Patients heart rate around 50-60s - Cardiology following, appreciate input and expertise. Rec ommend avoidance of beta rebecca and follow up with current algebraist as previously scheduled. Has signed off. - Continue telemetry monitoring. (3) Diverticulosis Status: Chronic Assessment and plan: - CT A/P found extensive colonic diverticulosis. Also significant for a segemental focal narrowing of distal aspect of transverse colon. Patient should follow up outpatient for colonoscopy. - CT abdomen/pelvis with indeterminate low-density hepatic lesions also noted, mostly likely benign cyst or hemangiomata. - Continue to monitor. Qualifiers: Diverticulosis site: diverticulosis of large intestine Diverticulosis bleeding: diverticulosis without bleeding Qualified Code(s): K57.30 - Diverticulosis of large intestine without perforation or abscess without bleeding (4) Essential hypertension Status: Acute Assessment and plan: - Reported highly elevated BP at 190s/90s at [facility]. - Blood pressures fluctuating, was 181/96 this morning - Continue amlodipine & losartan - will avoid beta blockers as per cardiology due to concern for bradycardia - Continue to monitor. (5) Alzheimer disease Status: Chronic Assessment and plan: Stable. Chronic. Patient is oriented to name only Will continue home aricept Qualifiers: Alzheimer's disease onset: unspecified onset Dementia behavioral disturbance: without behavioral disturbance Qualified Code(s): G30.9 - Alzheimer's disease, unspecified; F02.80 - Dementia in other diseases classified elsewhere without behavioral disturbance (6) DVT prophylaxis Status: Acute Assessment and plan: - SQ heparin. - Subjective Interval history: 86 year old female who [facility] from the [facility] with chest pain and was admitted for elevated troponin. Cardiology has been consulted and has placed recommendations in her chart. Patient seen and examined this morning. Sitter at bedside reports no acute overnight events. She denies any chest pain this morning. She is tolerating her diet. No family at bedside currently. - Constitutional Vitals: Temp Pulse Resp BP Pulse Ox 98 F 74 18 181/96 95 06/11/16 07:50 06/11/16 07:50 06/11/16 07:50 06/11/16 07:50 06/11/16 05:17 General appearance: Present: cooperative, A&O X 1 (Name only), no acute distress. Absent: answers questions appropriately - Head Head exam: Present: atraumatic, normocephalic - Eye Eye exam: Present: normal appearance. Absent: conjunctival injection - ENT ENT exam: Present: mucous membranes moist, normal external ear exam - Neck Neck exam general surgery: Present: supple, trachea midline - Respiratory Respiratory exam: Present: CTAB. Absent: rales, rhonchi, stridor, wheezes - Cardiovascular Cardiovascular exam: Present: RRR, +S1, +S2. Absent: clicks, diastolic murmur, gallop, rubs, systolic murmur - GI/Abdominal GI/Abdominal exam: Present: normal bowel sounds, soft, tenderness (left lower quadrant ). Absent: distended, guarding, rebound, rigid - Extremities Exam Extremities exam: Present: normal capillary refill, radial pulses palpable and symetrical. Absent: pedal edema - Skin Skin exam: Present: dry, intact, warm. Absent: rash Internal Medicine: Result - Labs CBC & Chem 7: 06/11/16 03:47 06/11/16 03:47 Labs: Short CBC 06/11/16 Range/Units 03:47 WBC 6.6 (4.3-11.1) K/mcL Hgb 13.0 (11.5-15.4) g/dL Hct 38.6 (35.3-44.9) % Plt Count 136 L (140-400) K/mcL Neutrophils # 3.8 (1.6-8.9) K/mcL BMP 06/11/16 03:47 Sodium 141 Potassium 3.4 L Chloride 106 Carbon Dioxide 24 BUN 14 Creatinine 0.73 Glucose 99 Calcium 9.4 - ABG Interpretation ABG results: PT/INR, D-dimer PT 13.7 Seconds (9.4-12.1) H 06/09/16 10:43 - Impressions Impressions Abdomen/Pelvis CT 06/10/16 13:13 IMPRESSION: 1. Cardiomegaly with atherosclerosis and coronary artery disease 2. Extensive colonic diverticulosis. 3. Short segment focal narrowing involving the distal aspect of the transverse colon. This could represent spasm, although neoplasm is not excluded. Correlation with colonoscopy is recommended. 4. Indeterminate low-density hepatic lesions. Statistically, these most likely represent benign cysts or hemangiomata. Consider MRI correlation to further characterize these lesions. 5. Severe osteoarthritis of the right hip with prominent right hip joint effusion. D/ / 06/10/2016 11:04:38 José [facility]ivel [facility] Interpreting Provider: José Miguel Esquivel MD Consult Discharge Plan - Plan Instructions: Oxycodone/Acetaminophen (By mouth), Amlodipine (By mouth), Diverticulosis (GEN), Chronic Hypertension (DC), Chronic Hypertension (GEN), Diverticulosis Diet (GEN) Referrals: Cori Donato DO [Primary Care Provider] - Prescriptions: Amlodipine [Norvasc] 10 mg PO DAILY 30 Days Oxycodone HCl/Acetaminophen [Percocet 5-325 mg Tablet] 1 tab PO Q4H PRN 30 Days PRN Reason: Pain <Elmira,Librado P - Last Filed: 06/11/16 17:19> Date of Encounter: 06/11/16 - Constitutional Vitals: Temp Pulse Resp BP Pulse Ox 98 F 74 18 176/83 95 06/11/16 07:50 06/11/16 12:18 06/11/16 07:50 06/11/16 12:18 06/11/16 12:18 Internal Medicine: Result - Labs CBC & Chem 7: 06/11/16 03:47 06/11/16 03:47 Labs: Short CBC 06/11/16 Range/Units 03:47 WBC 6.6 (4.3-11.1) K/mcL Hgb 13.0 (11.5-15.4) g/dL Hct 38.6 (35.3-44.9) % Plt Count 136 L (140-400) K/mcL Neutrophils # 3.8 (1.6-8.9) K/mcL BMP 06/11/16 03:47 Sodium 141 Potassium 3.4 L Chloride 106 Carbon Dioxide 24 BUN 14 Creatinine 0.73 Glucose 99 Calcium 9.4 - ABG Interpretation ABG results: PT/INR, D-dimer PT 13.7 Seconds (9.4-12.1) H 06/09/16 10:43 - Attending Attestation I examined this patient and my medical decision-making was reviewed with the SERVICE STATION HELPER/PA/Advanced Practice Nurse/Resident Physician. I agree with the documented findings, disposition and treatment plan as described except to the extent set forth below.
--- NOTE | 2016-06-11 10:32 | Physician Discharge Referral ---
Addendum entered and electronically signed by Juanita Bermeo DO 10:42: Patient is being discharged to [facility] as noted below Original Note: <Juanita Bermeo - Last Filed: 06/11/16 10:32> ExtendedCare Referral Info Transfer To: [facility] Provider in Charge after Transfer: PCP Institutional Level of Care: Skilled - Diagnosis (1) Elevated troponin I level Status: Acute (2) Bradycardia Status: Acute (3) Diverticulosis Status: Chronic (4) Essential hypertension Status: Acute (5) Alzheimer disease Status: Chronic (6) DVT prophylaxis Status: Acute - Transfer Medications Prescriptions: Amlodipine [Norvasc] 10 mg PO DAILY 30 Days Oxycodone HCl/Acetaminophen [Percocet 5-325 mg Tablet] 1 tab PO Q4H PRN 30 Days PRN Reason: Pain Home Medications: Aspirin [Lo-Dose Aspirin EC] 81 mg PO DAILY 06/09/16 [History] Buspirone HCl [Buspar] 10 mg PO TID 06/09/16 [History] Calcium Carbonate/Vitamin D3 [Oyster Shell Calcium-Vit D Tab] 1 tab PO DAILY 03/27 [History] Divalproex (12 HR) [Depakote (12 HR)] 250 mg PO BID 06/09/16 [History] Donepezil [Aricept] 10 mg PO HS 06/09/16 [History] Ergocalciferol (VITAMIN D2) [Vitamin D2] 50,000 unit PO MO 06/09/16 [History] Furosemide [Lasix] 20 mg PO BID 06/09/16 [History] HydrOXYzine Pamoate [Hydroxyzine Pamoate] 25 mg PO BID 06/09/16 [History] Iron Bis-Gly/FA/C/B12/Ca/Succ [Iron 21/7 Tablet] 1 tab PO DAILY 06/09/16 [ History] Losartan Potassium [Cozaar] 100 mg PO DAILY 06/09/16 [History] Memantine HCl [Namenda Xr] 14 mg PO DAILY 06/09/16 [History] Nitroglycerin [Nitrostat] 0.4 mg SL AD PRN 06/09/16 [History] Pantoprazole Sodium [Protonix] 40 mg PO DAILY 06/09/16 [History] Potassium Chloride [Klor-Con Sprinkle] 10 meq PO DAILY 06/09/16 [History] Sennosides/Docusate Sodium [Senna-Docusate Sodium Tablet] 1 tab PO BID 06/09/16 [History] Sertraline [Zoloft] 100 mg PO DAILY 06/09/16 [History] Amlodipine [Norvasc] 10 mg PO DAILY 30 Days 06/11/16 [Rx] Isosorbide MONOnitrate (24 HR) [Imdur] 30 mg PO DAILY tab.er.24h 06/11/16 [Rx] Oxycodone HCl/Acetaminophen [Percocet 5-325 mg Tablet] 1 tab PO Q4H PRN 30 Days 06/11/16 [Rx] Allergies/Adverse Reactions: Allergies quinine Allergy (Verified 06/09/16 10:18) See Comments unknown reaction alprazolam [From Xanax] Adverse Reaction (Verified 06/09/16 10:18) Agitated lorazepam [From Ativan] Adverse Reaction (Verified 06/09/16 10:18) Agitated - Respiratory Orders Smoking Cessation: Smoking cessation has been advised. For more information, call the [place] Quit Line at 5-765-URPT-NOW. CERTIFICATION: I certify that the transfer of the above named patient to an Extended Care Facility is necessary for the continuing treatment of the diagnosis listed. The above information is true and accurate reflection of patient's current condition. Confidential - Redisclosure prohibited without a patient's written consent. <Librado Ku P - Last Filed: 06/11/16 17:20> - Respiratory Orders Smoking Cessation: Smoking cessation has been advised. For more information, call the [place] Quit Line at 7-814-IHBJ-NOW. CERTIFICATION: I certify that the transfer of the above named patient to an Extended Care Facility is necessary for the continuing treatment of the diagnosis listed. The above information is true and accurate reflection of patient's current condition. Confidential - Redisclosure prohibited without a patient's written consent.
--- NOTE | 2016-06-11 10:36 | Discharge Summary ---
<Juanita Bemreo - Last Filed: 06/11/16 10:33> Date of Encounter: 06/11/16 Time of Encounter: 10:33 - Discharge Diagnosis (1) Elevated troponin I level Priority: Primary Status: Acute Comments: - Chest pain on initial presentation with troponin 0.04, 0.05. 0.05. Patient is currently chest pain free - EKG with sinus bradycardia with left bundle branch block, new from previous EKG in 2009. Patient normally follows at [facility] - Echo 06/10/16: LVEF 55%, moderate LV diastolic dysfunction and severe bi-atrial enlargement. - Cardiology following, appreciate input and expertise. - suspect mild elevation of troponin secondary to hypertensive urgency - continue aspirin, calcium channel rebecca and imdur. Recommended holding beta-rebecca in light of bradycardia - has signed off. Recommend follow up with normal multimedia developer as previously scheduled in 2 weeks. - no further interventions at this time (2) Bradycardia Priority: Primary Status: Acute Comments: - Patients heart rate around 50-60s - Cardiology following, appreciate input and expertise. Rec ommend avoidance of beta rebecca and follow up with current multimedia developer as previously scheduled. Has signed off. - Continue telemetry monitoring. (3) Diverticulosis Priority: Primary Status: Chronic Comments: - CT A/P found extensive colonic diverticulosis. Also significant for a segemental focal narrowing of distal aspect of transverse colon. Patient should follow up outpatient for colonoscopy. - CT abdomen/pelvis with indeterminate low-density hepatic lesions also noted, mostly likely benign cyst or hemangiomata. - Continue to monitor. Qualifiers: Diverticulosis site: diverticulosis of large intestine Diverticulosis bleeding: diverticulosis without bleeding Qualified Code(s): K57.30 - Diverticulosis of large intestine without perforation or abscess without bleeding (4) Essential hypertension Priority: Primary Status: Acute Comments: - Reported highly elevated BP at 190s/90s at [facility]. - Blood pressures fluctuating, was 181/96 this morning - Continue amlodipine & losartan - will avoid beta blockers as per cardiology due to concern for bradycardia - Continue to monitor. (5) Alzheimer disease Priority: Primary Status: Chronic Comments: Stable. Chronic. Patient is oriented to name only Will continue home aricept Qualifiers: Alzheimer's disease onset: unspecified onset Dementia behavioral disturbance: without behavioral disturbance Qualified Code(s): G30.9 - Alzheimer's disease, unspecified; F02.80 - Dementia in other diseases classified elsewhere without behavioral disturbance - Discharge Medications Prescriptions: Amlodipine [Norvasc] 10 mg PO DAILY 30 Days Oxycodone HCl/Acetaminophen [Percocet 5-325 mg Tablet] 1 tab PO Q4H PRN 30 Days PRN Reason: Pain Home Medications: Aspirin [Lo-Dose Aspirin EC] 81 mg PO DAILY 06/09/16 [History] Buspirone HCl [Buspar] 10 mg PO TID 06/09/16 [History] Calcium Carbonate/Vitamin D3 [Oyster Shell Calcium-Vit D Tab] 1 tab PO DAILY 03/27 [History] Divalproex (12 HR) [Depakote (12 HR)] 250 mg PO BID 06/09/16 [History] Donepezil [Aricept] 10 mg PO HS 06/09/16 [History] Ergocalciferol (VITAMIN D2) [Vitamin D2] 50,000 unit PO MO 06/09/16 [History] Furosemide [Lasix] 20 mg PO BID 06/09/16 [History] HydrOXYzine Pamoate [Hydroxyzine Pamoate] 25 mg PO BID 06/09/16 [History] Iron Bis-Gly/FA/C/B12/Ca/Succ [Iron 21/7 Tablet] 1 tab PO DAILY 06/09/16 [ History] Losartan Potassium [Cozaar] 100 mg PO DAILY 06/09/16 [History] Memantine HCl [Namenda Xr] 14 mg PO DAILY 06/09/16 [History] Nitroglycerin [Nitrostat] 0.4 mg SL AD PRN 06/09/16 [History] Pantoprazole Sodium [Protonix] 40 mg PO DAILY 06/09/16 [History] Potassium Chloride [Klor-Con Sprinkle] 10 meq PO DAILY 06/09/16 [History] Sennosides/Docusate Sodium [Senna-Docusate Sodium Tablet] 1 tab PO BID 06/09/16 [History] Sertraline [Zoloft] 100 mg PO DAILY 06/09/16 [History] Amlodipine [Norvasc] 10 mg PO DAILY 30 Days 06/11/16 [Rx] Isosorbide MONOnitrate (24 HR) [Imdur] 30 mg PO DAILY tab.er.24h 06/11/16 [Rx] Oxycodone HCl/Acetaminophen [Percocet 5-325 mg Tablet] 1 tab PO Q4H PRN 30 Days 06/11/16 [Rx] Allergies/Adverse Reactions: Allergies quinine Allergy (Verified 06/09/16 10:18) See Comments unknown reaction alprazolam [From Xanax] Adverse Reaction (Verified 06/09/16 10:18) Agitated lorazepam [From Ativan] Adverse Reaction (Verified 06/09/16 10:18) Agitated Procedures/tests Complete & Pending: Procedures Performed prior 72 hours Category Date Time Status CT abd pelvis wo no iv no oral [CT] Routine Cat Scan 06/10/16 13:13 Completed EV echocardiogram Routine Y 06/10/16 12:46 Completed Date of admission: 06/09/16 12:45 Primary care physician: Cori Donato DO Consults: 06/09/16 12:48 Consult to Cardiology [CONS] Routine Comment: Consulting Provider: Cardiology Shari Reason for Consult: nstemi Call Completed: Yes 06/09/16 14:20 Consult to Casting And Curing Operator [CONS] Routine Reason for SW Consult: From [place] Discharging clinician: Librado Ku Anticipated date of discharge: 06/11/16 - Patient Status Disposition: Transfer SNF Condition: Good Functional capacity at discharge: bed bound Overall status at discharge: patient is progressing back to baseline - Discharge Instructions Instructions: Oxycodone/Acetaminophen (By mouth), Amlodipine (By mouth), Diverticulosis (GEN), Chronic Hypertension (DC), Chronic Hypertension (GEN), Diverticulosis Diet (GEN) Follow Up With: Cori Donato DO [Primary Care Provider] - - Diet and Activity Activity: as per physical therapy Diet: advance to your usual diet Interval History: 86 year old female with history of advanced Alheimer's dementia CAD s/p PCI in 2002, 2005, 2007 who presented to the emergency room with her daughter. Per report the patient has been complaining of retrosternal chest pain. At time of presentation she was additionally complaining of lower abdominal pain. Per daughter's report, the patient was found to have an elevated blood pressure at the [facility] of 190/90. Patient was found to have elevated troponin of 0.04 which magda but stabilized to 0.05 for 2 more occurances. Cardiology was consulted, suspected that the mild elevation in her cardiac enzymes was secondary to her hypertensive urgency. Also recommended continuation of aspirin , calcium channel rebecca and imdur. Patient was bradycardic with HR in 40s- upper 60's, cardiology recommended holding beta rebecca for now. Beta rebecca was discontinued on discharge. Repeat echo performed on 06/10/16 demonstrated LVEF 55% with moderate diastolic dysfunction and severe bi-atrial enlargement. Patient normally follows with cardiology at [facility], recommended follow up as previously scheduled in 2 weeks. Due to her abdominal pain, a CT abdomen/ pelvis was performed which demonstrated extensive colonic diverticuosis with segmental focal narrowing of distal aspect of transverse colon. Recommend a follow up colonoscopy as outpatient to further investigate area of narrowing. The CT also noted indeterminate low-density hepatic lesions representing cysts vs hemangiomas, recommend further follow up as outpatient. While inpatient her amlodipine was increased to 10 mg from 5 mg daily, she was maintained on her regular dose of losartan. Wither regards to her alzheimer's dementia, she was maintained on her home medications. Per family the patient was at her baseline mental status during her hospital stay. On day of discharge she was tolerating general diet, her vitals were stable and she was denying any chest pain. Hospital course: Ms. Whitehead is a 86 year old female - Time Spent with Patient Total time spent providing and/or coordinating discharge services: - Constitutional Vitals: Temp Pulse Resp BP Pulse Ox 98 F 74 18 181/96 95 06/11/16 07:50 06/11/16 07:50 06/11/16 07:50 06/11/16 07:50 06/11/16 05:17 General appearance: Present: cooperative, A&O X 1 (Name only), no acute distress. Absent: answers questions appropriately - Head Head exam: Present: atraumatic, normocephalic - Eye Eye exam: Present: normal appearance. Absent: conjunctival injection - ENT ENT exam: Present: mucous membranes moist, normal external ear exam - Neck Neck exam general surgery: Present: supple, trachea midline - Respiratory Respiratory exam: Present: CTAB. Absent: rales, rhonchi, stridor, wheezes - Cardiovascular Cardiovascular exam: Present: RRR, +S1, +S2. Absent: clicks, diastolic murmur, gallop, rubs, systolic murmur - GI/Abdominal GI/Abdominal exam: Present: normal bowel sounds, soft, tenderness (mild tenderness left lower quadrant ). Absent: distended, guarding, rebound, rigid - Extremities Exam Extremities exam: Present: normal capillary refill, radial pulses palpable and symetrical. Absent: pedal edema - Neurological Exam Neurological exam: Absent: facial droop, speech deficit - Skin Skin exam: Present: dry, intact, warm <Elmira,Librado P - Last Filed: 06/11/16 17:20> Date of Encounter: 06/11/16 Procedures/tests Complete & Pending: Procedures Performed prior 72 hours Category Date Time Status CT abd pelvis wo no iv no oral [CT] Routine Cat Scan 06/10/16 13:13 Completed EV echocardiogram Routine Y 06/10/16 12:46 Completed Date of admission: 06/09/16 12:45 Primary care physician: Cori Donato DO Consults: 06/09/16 12:48 Consult to Cardiology [CONS] Routine Comment: Consulting Provider: Cardiology Webb Reason for Consult: nstemi Call Completed: Yes 06/09/16 14:20 Consult to Casting And Curing Operator [CONS] Routine Reason for SW Consult: From [facility] course: Ms. Whitehead is a 86 year old female - Time Spent with Patient Total time spent providing and/or coordinating discharge services: - Constitutional Vitals: Temp Pulse Resp BP Pulse Ox 98 F 74 18 176/83 95 06/11/16 07:50 06/11/16 12:18 06/11/16 07:50 06/11/16 12:18 06/11/16 12:18 - Attending Attestation I examined this patient and my medical decision-making was reviewed with the AUTOMOTIVE SOFTWARE ENGINEER/PA/Advanced Practice Nurse/Resident Physician. I agree with the documented findings, disposition and treatment plan as described except to the extent set forth below.
[2016-06-11] MEDS: Aspirin Enteric Coated 81 MG Tablet PO SCH (12:01)
[2016-06-11] MEDS: Furosemide 20 MG TABLET PO SCH (12:01)
[2016-06-11] MEDS: Isosorbide MONOnitrate (24 HR) 30 MG TAB.ER.24H PO SCH (12:02)
[2016-06-11] MEDS: Divalproex (12 HR) 250 MG TABLET PO SCH (12:02)
[2016-06-11] MEDS: amLODIPine 5 MG TABLET PO SCH (12:02)
[2016-06-11 12:27] VITALS: BP 176/83
[2016-06-12 18:21] LABS: CK-MB (CK isoenzymes) 0 % (0-4); CK-MM (CK-isoenzymes) 100 % (96-100)
[2016-06-12 18:21] LABS: CK-BB (CK isoenzymes) 0 % (0-0); CK-MB (CK isoenzymes) 0 % (0-4); CK-MM (CK-isoenzymes) 100 % (96-100)
[2016-06-13 08:43] LABS: CK Total (Ck Isoenzymes) 135 U/L (20-180)
[2016-06-13 08:43] LABS: CK Total (Ck Isoenzymes) 48 U/L (20-180); CK-BB (CK isoenzymes) 0 % (0-0)
== END 2016-06-11 16:00 | DRG 305 ==
LOC: 2NENU 10:08 → EMEROO 10:08 → 2NENU 13:18
PROVIDERS: ADMIT Hospitalist; ATTEND Internal Medicine